=== PATIENT | female | born 1990 | race Hispanic/Latino ===

== ENCOUNTER → 2019-07-15 | Day surgery (SDC) | payer BC ==
[2019-07-11 13:37] LABS: BASOPHILS % 0.5 % (0.0-1.0); EOSINOPHILS # (AUTO) 0.1 (0.0-0.4); EOSINOPHILS % 0.8 % (0.0-6.0); HEMATOCRIT 42.5 % (34.2-44.1); HEMOGLOBIN 13.7 g/dL (12.0-16.0); LYMPHOCYTES % 40.3 % (18.0-39.1); MEAN CORPUSCULAR HEMOGLOBIN 29.5 pg (28-32); MEAN CORPUSCULAR HGB CONC 32.2 g/dL (31-35); MEAN CORPUSCULAR VOLUME 91.4 fL (81-99); MONOCYTES # (AUTO) 0.4 (0.2-0.8); MONOCYTES % 5.9 % (4.4-11.3); NEUTROPHILS # (AUTO) 3.9 (2.1-6.9); NEUTROPHILS % 52.1 % (38.7-80.0); PLATELET COUNT 356 x10e3/uL (140-360); RED BLOOD COUNT 4.65 x10e6/uL (3.6-5.1)
--- NOTE | 2019-07-11 14:14 | Diagnostic Imaging Report ---
Lumbar spine, 2 views Clinical indication: Preoperative evaluation for foreign body removal. Comparison: None Findings: AP and lateral views of the lumbosacral spine were obtained. The patient has two dermal piercings at the L4 level. The subcutaneous anchors are approximately 3 mm deep and measures approximately 6 to 7 mm in diameter. There are 5 nonrib-bearing lumbar vertebral bodies is equal height. Disc spaces are preserved. Alignment is anatomic. No evidence of spondylolisthesis Impression: 2 dermal piercings identified in the L4 lumbar region. Signed by: Austin Villareal MD on 07/11/2019 2:10 PM
[~2019-07-15] MED LIST: ACETAMINOPHEN 1000 MG/100 ML IV ONE; BUPIVACAINE 0.25%/EPI 30ML SDV INJ ONE; CEFAZOLIN SOD 1 GM VIAL ONE; DESFLURANE 240 ML BTL INH ONE; DEXAMETHASONE SOD PHOS INJ 4 MG/ML VIAL ONE; FENTANYL CITRATE/PF 100MCG/2 ML INJ ONE; GLYCOPYRROLATE INJ 0.2 MG/ML VIAL ONE; KETOROLAC TROMETHAMINE 30 MG/ML VIAL ONE; LIDOCAINE HCL 2% JELLY 5 ML TUBE ONE; LIDOCAINE HCL 2% LOCAL INJ 5 ML SDV VIAL INJ ONE; MEPERIDINE HCL INJ 25 MG/ML VIAL ONE; NAPROXEN250 MG PO; NEOSTIGMINE 1 MG/ML 10ML VIAL ONE; ONDANSETRON HCL INJ 2MG/ML 2ML 2 MG/ML VIAL ONE; PROPOFOL IV EMULSION 10 MG/ML 20 ML VIAL ONE; ROCURONIUM BROMIDE 10 MG/ML 5ML VIAL ONE; TYLENOL WITH C1 EACH PO
--- OUTSIDE RECORDS SUMMARY | 2019-07-15 05:27 | XMS REPORT ---
Author [facility] Address Unknown Phone Unavailable Care Team Providers Care Journal Entry Audit Clerk Name Role Phone GAVIN MARIE Unavailable Unavailable Problems This patient has no known problems. Allergies, Adverse Reactions, Alerts This patient has no known allergies or adverse reactions. Medications This patient has no known medications. Results Test Description Test Time Test Comments Text Results Atomic Results Result Comments SP LUMBAR AP LATERAL 2-3VWS 2019-07-11 14:06:00 [place] [id number] Patient Name: JEANNE BECK MR #: [id number] : 1990 Age/Sex: 28/F Req #: [id number] Adm Physician: Ordered by: GAVIN MARIE MD Report #: [id number] Location: OR Room/Bed: Procedure: [id number] DX/SP LUMBAR AP LATERAL 2-3VWS Exam Date: 07/11/19 Exam Time: 1349 REPORT STATUS: Signed Lumbar spine, 2 views Clinical indication: Preoperative evaluation for foreign body removal. Comparison: None Findings: AP and lateral views of the lumbosacral spine were obtained. The patient has two dermal piercings at the L4 level. The subcutaneous anchors are approximately 3 mm deep and measures approximately 6 to 7 mm in diameter. There are 5 nonrib-bearing lumbar vertebral bodies is equal height. Disc spaces are preserved. Alignment is anatomic. No evidence of spondylolisthesis Impression: 2 dermal piercings identified in the L4 lumbar region. Signed by: Austin Vincent MD on 07/11/2019 2:10 PM Dictated By: AUSTIN VINCENT MD [id number] Transcribed By: GORDON on 07/11/19 141 COPY TO: GAVIN MARIE MD
[2019-07-15 09:59] VITALS: BP 107/55
--- NOTE | 2019-07-15 10:14 | Operative Report ---
DATE OF PROCEDURE: 07/15/2019 SURGEON: Seamus Hernandez MD PREOPERATIVE DIAGNOSIS: Bilateral lower back piercing. POSTOPERATIVE DIAGNOSIS: Bilateral lower back piercing. PROCEDURE PERFORMED: Excision of bilateral lower back piercing. ANESTHESIA: General. ESTIMATED BLOOD LOSS: Minimal. DRAINS: None. COMPLICATIONS: None. INDICATIONS AND FINDINGS: The patient is a 28-year-old female, who had bilateral piercings in the lower back, now wants removal. One of the legs had some thickened hypertrophic keloid type of scar. They were all excised down to subcutaneous tissues. DESCRIPTION OF PROCEDURE: With the patient lying on the operative table in the supine position and after administration of general anesthesia, she was prepped and draped for excision of bilateral piercings of the lower back. She was placed in the prone position. An elliptical incision was made on the right side first where the skin was normal, and the dissection was carried down through the skin and subcutaneous tissue, until entire foreign body was excised en bloc with this tissues. Bleeding points were cauterized. The wound was irrigated, infiltrated with 0.25% Marcaine with epinephrine and then closed in two layers using 3-0 Vicryl for the soft tissues and subcuticular skin closure was carried out using 4-0 Vicryl. After we did that, we repeated the same procedure on the other side. Little bit of a wider margin because of the hypertrophic keloid scar and used the same technique for the closure. At the end of the procedure, both wounds were covered with Dermabond. The patient tolerated the procedure well, was taken to the recovery room in stable condition. MD LILIANA MartinezR/MODL /[id number]
== END | disposition home or self-care (01) ==
LOC: OR 05:22
PROVIDERS: ATTEND Surgery
DX: S30.850A Superficial foreign body of lower back and pelvis, initial encounter (principal); Z18.89 Other specified retained foreign body fragments; L91.0 Hypertrophic scar; X58.XXXA Exposure to other specified factors, initial encounter; Z01.812 Encounter for preprocedural laboratory examination
CPT/HCPCS: 10120 ×2; 36415; 72100; 81025; 85025; 88305; J0131; J0690; J1100; J1885; J2001 ×2; J2175; J2405; J2704; J2710; J3010

== ENCOUNTER → 2025-04-21 | Outpatient (REF) | payer OTHER ==
[~2025-04-21] MED LIST changes: -ACETAMINOPHEN 1000 MG/100 ML IV ONE; -BUPIVACAINE 0.25%/EPI 30ML SDV INJ ONE; -CEFAZOLIN SOD 1 GM VIAL ONE; -DESFLURANE 240 ML BTL INH ONE; -DEXAMETHASONE SOD PHOS INJ 4 MG/ML VIAL ONE; -FENTANYL CITRATE/PF 100MCG/2 ML INJ ONE; -GLYCOPYRROLATE INJ 0.2 MG/ML VIAL ONE; -KETOROLAC TROMETHAMINE 30 MG/ML VIAL ONE; -LIDOCAINE HCL 2% JELLY 5 ML TUBE ONE; -LIDOCAINE HCL 2% LOCAL INJ 5 ML SDV VIAL INJ ONE; -MEPERIDINE HCL INJ 25 MG/ML VIAL ONE; -NEOSTIGMINE 1 MG/ML 10ML VIAL ONE; -ONDANSETRON HCL INJ 2MG/ML 2ML 2 MG/ML VIAL ONE; -PROPOFOL IV EMULSION 10 MG/ML 20 ML VIAL ONE; -ROCURONIUM BROMIDE 10 MG/ML 5ML VIAL ONE
== END ==
LOC: US 07:35
PROVIDERS: ATTEND Nurse Practitioner Family
DX: R10.9 Unspecified abdominal pain (principal)
CPT/HCPCS: 76700

== ENCOUNTER → 2025-05-19 | Day surgery (SDC) | payer OTHER ==
[~2025-05-19] MED LIST changes: +LIDOCAINE HCL 2% LOCAL INJ 5 ML SDV VIAL INJ ONE; +MIDAZOLAM HCL 2 MG/2 ML VIAL ONE; +PROPOFOL IV EMULSION 10 MG/ML 20 ML VIAL ONE; +PROPOFOL IV EMULSION 50 ML IV ONE
[2025-05-19] MEDS: LACTATED RINGER'S 1,000 ML ONE (10:17)
[2025-05-19 11:35] VITALS: BP 100/71; PULSE 73; RESP 16; O2SAT 100
== END | disposition home or self-care (01) ==
LOC: OR 08:01
PROVIDERS: ATTEND Internal Medicine Gastroenterology
DX: K29.50 Unspecified chronic gastritis without bleeding (principal); K21.9 Gastro-esophageal reflux disease without esophagitis; K44.9 Diaphragmatic hernia without obstruction or gangrene; K64.8 Other hemorrhoids; Z01.818 Encounter for other preprocedural examination
CPT/HCPCS: 43239; 45378; 81025; J2003; J2250; J2704; J7121